=== PATIENT | female | born 1950 | race Caucasian/White ===

== ENCOUNTER 2017-11-25 05:24 | Day surgery (SDC) | payer OTHER ==
[~2017-11-25] VITALS: Ht 157.5 cm; Wt 59.0 kg
--- NOTE | ~2017-11-25 | O ---
[facility] [place] [address] OPERATIVE REPORT Name: SHIRA HUMPHREY Room #: DEP [facility]..#: [id number] Admission: 11/25/17 Attend Phys: Marques Andersen MD Discharge: 11/25/17 Date of : 50 Report #: [id number] THIS REPORT FOR: //name// CC: Marques Moncada MD DATE OF SERVICE: 11/25/2017 PREOPERATIVE DIAGNOSIS: Right breast mass, ultrasound-guided biopsy showing atypical ductal hyperplasia. POSTOPERATIVE DIAGNOSIS: Right breast mass, ultrasound-guided biopsy showing atypical ductal hyperplasia. PROCEDURES PERFORMED: Right breast biopsy with intraoperative ultrasound with needle placement. SURGEON: Marques Andersen M.D. ANESTHESIA: IV sedation. COMPLICATIONS: None. ESTIMATED BLOOD LOSS: 10 mL. PROCEDURE NOTE: With the patient under IV sedation, the breast was prepped and draped in a sterile fashion. A 0.25% Marcaine was used to anesthetize the skin. Using sterile ultrasound within a sleeve, the target was marked. A 21-gauge needle 2 inch in length was passed from the skin into the lesion. Ellipse was drawn around the needle and directly placed over the mass. This was excised. Dissection was then carried through subcutaneous tissue. The deeper tissue was then excised. The medial aspect is quite thick from her fibrocystic disease. Superior lateral, inferiorly and posteriorly was more of a fatty tissue consistency. Approximately a 3 x 4 cm segment was removed. Specimen sent to mammography. The clip is identified in the center part of the specimen consistent with successful removal of the area of interest. Specimen was then given to pathology with the outside report and orientation. Irrigation was performed, hemostasis obtained. The subcutaneous tissue was closed with 4-0 PDS. Skin was closed with 5-0 PDS. Dermabond was used. Fluffy, 4 x 4, OpSite used for dressing. The patient tolerated the procedure well. <ELECTRONICALLY SIGNED> By: Marques Andersen MD 11/27/17 1153 1602 1816 Marques Andersen MD /nt
--- NOTE | ~2017-11-25 | H ---
[facility] [place] [address] HISTORY AND PHYSICAL Name: SHIRA HUMPHREY Room #: DEP [facility] M.R.#: [id number] Admission: 11/25/17 Attend Phys: Marques Andersen MD Discharge: 11/25/17 Date of : 50 Report #: [id number] THIS REPORT FOR: //name// CC: Marques Moncada MD DATE OF SERVICE: 11/25/2017 PREOPERATIVE DIAGNOSIS: Right breast mass, biopsy shows atypical ductal hyperplasia, here for excisional biopsy. HISTORY OF PRESENT ILLNESS: The patient is a 67-year-old who on her most recent mammogram was found to have a small nodular lesion on her mammogram. The patient underwent ultrasound. Ultrasound showed a hypoechoic irregular area. I am not sure if this is the same as the mammographic identified area. It seems to be too medial. The patient did undergo diagnostic mammogram images. The patient underwent biopsy with ultrasound guidance. The biopsy came back with ADH. There are also fibrocystic changes. The patient has not noticed any problem on self exam. No pain, no discharge and no skin changes. The patient does do monthly exam. She does have a history of skin cancer in the right arm 8-9 years ago. No personal history of previous biopsy. She has had mammogram in the past that required a followup 6 months imaging because of the density of her breasts and fibrocystic nature. The patient has a maternal great aunt that has a history of breast cancer. There is ovarian cancer on the father's side. Paternal side does have pancreatic cancer and colon cancer. Father had prostate cancer and skin cancer. The patient is brought in for excision of the ADH area, which is about the 9 to 10 o'clock position in the right breast. PAST MEDICAL HISTORY: The patient has a history of hiatal hernia and Rogers's esophagus. No heart disease, no high blood pressure, no diabetes, no liver disease, no kidney disease, no bleeding disorder, no history of blood clot and no history of lung disease. PAST SURGICAL HISTORY: The patient had skin cancer removed from her right arm in 2009. MEDICATIONS: Hfwj-dlk-arjljwo Pepcid. FAMILY HISTORY: Cancer on the father's side. SOCIAL HISTORY: She is a primary caregiver for her . She does not smoke. Drinks one glass of wine daily. REVIEW OF SYSTEMS: Only remarkable for wearing glasses and having some reflux issues. No chest pain, shortness of breath or palpitation. [facility] [address] [place] [address] HISTORY AND PHYSICAL Name: SHIRA HUMPHREY Room #: DEP [facility]#: [id number] Admission: 11/25/17 Attend Phys: Marques Andersen MD Discharge: 11/25/17 Date of : 50 Report #: [id number] PHYSICAL EXAMINATION: GENERAL: The patient is well-nourished, elderly female in no acute distress. HEENT: Pupils react to light. Extraocular muscles are intact. Oropharynx is clear. NECK: Soft and supple, no masses. No supraclavicular or axillary adenopathy. BREASTS: Right breast, there is a small biopsy incision in the 9 o'clock position lateral. The biopsy site, the lesion is not distinctly palpable. It is visualized on ultrasound within the 9 o'clock B position. No skin changes. No other mass identified. The breast is moderately thickened. HEART: Regular rate and rhythm. No murmur or gallop. LUNGS: Clear. ABDOMEN: Soft, nondistended and nontender. EXTREMITIES: No cyanosis, clubbing or edema. IMPRESSION: The patient is a 67-year-old with an abnormal mammogram, which showed a nodular lesion. Ultrasound showed about a 1.5 cm hypoechoic area. I do not think this is what was seen on mammography. This was biopsied and did show area of atypical ductal hyperplasia, which was felt to be an incidental finding. The main lesion could be fibrocystic. The patient is recommended to undergo excisional biopsy of this area. I did speak with the radiologist that performed the procedure. There is a clip that was left behind. The clip is anterior of the mass. The patient understands biopsy, nature of the biopsy and does want to proceed. She is brought in for IV sedation and the right breast biopsy. Preop ultrasound or intraoperative ultrasound will be performed to identify the area of involvement. Specimen mammogram was discussed. The patient understands the procedure and wishes to proceed. <ELECTRONICALLY SIGNED> By: Marques Andersen MD 11/27/17 1153 [id number] 2224 Marques Andersen MD /nt
--- NOTE | ~2017-11-25 | PATH ---
[facility] [address] [place] [address] PATHOLOGY RPT PROCEDURE Name: ES HUMPHREY Room #: DEP [facility] M.R.#: [id number] Admission: 11/25/17 Date of : 50 Discharge: 11/25/17 Report #: [id number] Path Case #: [id number] [facility] Accession Number: [id number] . 01 Material submitted: . RIGHT BREAST TISSUE . 01 Clinician provided ICD-10: 0 . 01 Clinical history: . Right breast mass, ADH . 02 Diagnosis: Breast, right breast tissue, lumpectomy: - SCATTERED FOCI OF ATYPICAL DUCTAL HYPERPLASIA WITH CRIBRIFORM ARCHITECTURE; 1 MM FROM RESECTION MARGIN. - Proliferative changes including columnar cell hyperplasia, fibroadenoma, adenosis, usual ductal hyperplasia as well as apocrine metaplasia. - Extensive biopsy site changes/reparative changes present with calcium oxalate crystals. - Skin with no diagnostic abnormalities. (IUV:roshan; 11/29/2017) QMS/11/29/2017 . 02 Comment: CK5/6 and ER immunohistochemical stains are performed on block A5 and loss of mosaic pattern as well as overexpression is identified confirming the diagnosis of ADH as rendered. CK5/6 and ER are peformed on A19 as well and confirm the same. P63 immunohistochemical stain along with smooth muscle myosin heavy chain are performed on block A13 and it shows intact myoepithelial cells consistent with adenosis. . Box Sealing Machine Catcher slides (A5, A19, and A13) along with immunohistochemical stains are co-reviewed by Dr. Lizandro Humphries, who concurs with my diagnosis. (IUV:roshan; 11/29/2017) . 02 Electronically signed: . Arabella Asencio MD, Pathologist NPI- [id number] . 01 Gross description: . The specimen is received in formalin, labeled "Es Humphrey, right breast tissue, lesion facing up, clip anterior to lesion". Received is a 33 g unoriented segment of bright yellow lobulated tissue measuring 5.7 x 5.2 x 3.3 cm in greatest dimensions with an attached ellipse of pale mccabe, [place] [address] PATHOLOGY RPT PROCEDURE Name: MILAGROES Room #: DEP [facility] M.R.#: [id number] Admission: 11/25/17 Date of : 50 Discharge: 11/25/17 Report #: [id number] Path Case #: [id number] wrinkled skin measuring 3.6 x 0.5 cm. The surgical margin is inked. Sectioning reveals the hemorrhagic possible previous biopsy site measuring 1.2 x 0.3 x 0.3 cm, which is 0.7 cm from the closest margin. The remainder the specimen is comprised of bright yellow, lobulated to white-mccabe, fibrous cut surfaces, with the fibrous tissue encompassing approximately 7% of the specimen. Thorough dissection and palpation of the specimen reveals no readily identifiable biopsy clip. The specimen is serially sectioned and entirely submitted in cassettes A1 through A36, with some sections additionally bisected, trisected, or quadrisected. The cold ischemic time is 19 minutes. The total formalin fixation time is 11 hours and 40 minutes. (CAA; 11/25/2017) QAC/QAC . 02 Pathologist provided ICD-10: N60.91, D24.1, N60.81 . 02 CPT . 700003, P85302, Y13647 Specimen Comment: A courtesy copy of this report has been sent to Specimen Comment: [phone], . Specimen Comment: Report sent to / DR VILLAVICENCIO Performed at: [address], [place], [place] [id number] MD Timothy Saravia MD Phone: [phone] Performed at: [address] [id number] MD Arabella Asencio MD Phone: [phone]
--- NOTE | ~2017-11-25 | EKG ---
[place] [address] [facility] [place] [address] ELECTROCARDIOGRAM REPORT Name: MILAGROSHIRA INNA Room #: DEP [facility]#: [id number] Admission: 11/25/17 Attend Phys: Marques Andersen MD Discharge: 11/25/17 Date of : 50 Report #: [id number] THIS REPORT FOR: //name// [facility] Test Date: 2017-11-25 Test Time: 10:11:20 Pat Name: SHIRA HUMPHREY Department: Room: 150 2 Gender: F Field Case Manager: RENU : 1950 Requested By: Marques Andersen Order Number: [id number] MD: Jonathan Moreno Measurements Intervals [place] Rate: 62 P: 9 WI: 178 QRS: -58 QRSD: 89 T: 1 QT: 388 QTc: 394 Interpretive Statements Sinus rhythm LAD, consider left anterior fascicular block Borderline T abnormalities, inferior leads No previous ECG available for comparison Electronically Signed On 11-26-2017 10:06:26 CDT by Jonathan Moreno [email or web address] <ELECTRONICALLY SIGNED> By: Jonathan Moreno MD, [facility] 11/26/17 1006 1011 1011 Jonathan Moreno MD, [facility] /EPI
[~2017-11-25 05:24] MED LIST: CRANBERRY500 MG PO; FISH OIL 1,001000 M2 PO; OMEPRAZOLE20 MG PO; PROBIOTIC1 EAC1 PO; VITAMIN D2000 UNIT PO
[2017-11-25 09:37] LABS: HEMATOCRIT 39.3 % (37.0-47.0); HEMOGLOBIN 13.2 gm/dL (12.0-15.0)
[2017-11-25] MEDS ORDERED: NORCO 5-325 TA1 EACH PO (12:14)
[2017-11-25 12:30] VITALS: BP 148/74
== END 2017-11-25 13:40 | disposition home or self-care (01) ==
LOC: TBA 05:24 → OR 05:24
PROVIDERS: Surgery
DX: D24.1 Benign neoplasm of right breast (principal); N62 Hypertrophy of breast; N60.21 Fibroadenosis of right breast; N60.81 Other benign mammary dysplasias of right breast; K21.9 Gastro-esophageal reflux disease without esophagitis; K44.9 Diaphragmatic hernia without obstruction or gangrene; Z88.1 Allergy status to other antibiotic agents; Z85.828 Personal history of other malignant neoplasm of skin; Z85.3 Personal history of malignant neoplasm of breast; Z98.890 Other specified postprocedural states; Z79.899 Other long term (current) drug therapy
CPT/HCPCS: 50010; 50101; 50386; 50417; 54118; 56525; 56526; 62110; 62850; 70005

== ENCOUNTER → 2018-10-12 | Outpatient (CLI) | payer OTHER ==
[~2018-10-12] MED LIST changes: +NORCO 5-325 TA1 EACH PO
== END ==
LOC: RAD 01:13
DX: N60.91 Unspecified benign mammary dysplasia of right breast (principal); R92.2 Inconclusive mammogram

== ENCOUNTER → 2018-11-03 | Outpatient (CLI) | payer OTHER ==
[~2018-11-03] VITALS: Ht 157.5 cm; Wt 55.3 kg
[~2018-11-03] MED LIST changes: +CO Q-10100 MG PO; +PRILOSEC OTC20 MG PO; +SUPER CALCIUM1 EAC1 PO; +VITAMIN B-12500 MC5 SUBLING
--- NOTE | 2018-11-03 17:12 | P ---
[facility] [place] [address] PROCEDURE REPORT Name: SHIRA HUMPHREY Room #: REG [facility]#: [id number] Admission: 11/03/18 ������������������ Attend Phys: Aleksander Cox MD Discharge: ������������������ Date of : 50 Report #: [id number] THIS REPORT FOR: //name// CC: Aleksander Moncada MD DATE OF SERVICE: 11/03/2018 OUTPATIENT COLONOSCOPY REPORT BRIEF HISTORY: The patient is a 68-year-old woman for average risk screening colonoscopy. PREOPERATIVE DIAGNOSIS: Average risk screening colonoscopy. POSTOPERATIVE DIAGNOSES: 1. Diminutive rectal polyp. 2. Small internal hemorrhoids. MEDICATIONS: Deep sedation with propofol per anesthesia. SPECIMEN: Rectal polyp. ESTIMATED BLOOD LOSS: 3 mL. PROCEDURE: Colonoscopy to cecum and terminal ileum with biopsy. FINDINGS: Prior to propofol sedation, procedure of colonoscopy was discussed with the patient as well as potential risks and its complications. She indicates she understands and desires to proceed. DESCRIPTION OF PROCEDURE: With the patient in left lateral decubitus position, digital examination was completed, which revealed no abnormalities. Subsequently, the Olympus video colonoscope was introduced in the rectum, advanced under direct vision to the cecum. It was done with minimal difficulty. The cecum was identified by the ileocecal valve and the appendiceal orifice. I was able to visualize the distal segment of the terminal ileum, which was inspected and noted to be unremarkable. At that point, the scope was slowly withdrawn and careful circumferential views were obtained. Upon slow withdrawal of the scope, the prep was excellent. The mucosa was within normal limits, normal vascular pattern, normal light reflex. As we withdrew the scope, no abnormalities were noted throughout the entire colon until the rectum was reached. She had normal colonic mucosa throughout. Diverticular disease was not seen. The scope was withdrawn in the rectum and initially no abnormalities were seen. However, in the distal rectum, a diminutive polyp was seen and [facility] [address] [place] [address] PROCEDURE REPORT Name: SHIRA HUMPHREY Room #: REG [facility].#: [id number] Admission: 11/03/18 ������������������ Attend Phys: Aleksander Cox MD Discharge: ������������������ Date of : 50 Report #: [id number] removed with biopsy forceps. Upon retroflexion, small internal hemorrhoids were seen. Scope was withdrawn. The patient tolerated the procedure well. CONDITION OF THE PATIENT UPON DISCHARGE: Following procedure, the patient drowsy, aroused, conversant and will be discharged home when fully ambulatory. INSTRUCTIONS TO THE PATIENT AND FAMILY AT THE TIME OF DISCHARGE: We will follow up on the pathology. If this is an adenoma, she is to return in 5 years; if it is hyperplastic, then 10 years would be indicated. Last colonoscopy was 10 years ago. Withdrawal time from the cecum was 10 minutes 52 seconds. ��������������������������������������������� <ELECTRONICALLY SIGNED> ���������������������������������������� By: Aleksander Cox MD ��������������������������������������������� 11/03/18 1712 0805 0935 Aleksander Cox MD /nt
--- NOTE | 2018-11-06 16:06 | PATH ---
[facility] [address] [place] [address] PATHOLOGY RPT PROCEDURE Name: ES HUMPHREY Room #: REG [facility] Angelica.#: [id number] ������������������ Admission: 11/03/18 ������������������ Date of : 50 Discharge: Report #: [id number] Path Case #: [id number] [facility] Accession Number: [id number] . 01 Material submitted: . rectum - BX POLYP AT RECTUM . 01 Clinical history: . Pre-OP DX: Screening Post-OP DX: Rectal polyp, hemorrhoids . 02 Diagnosis: Polyp, at rectum, endoscopic biopsy: - Tubular adenoma. - Negative for high grade dysplasia. . (IUV:mml; 11/06/2018) QL 11/06/2018 1413 Local . 02 Electronically signed: . Arabella Asencio MD, Pathologist NPI- [id number] . 01 Gross description: . Received in formalin labeled "Es Humphrey, BX polyp at rectum," is a single segment of mccabe soft tissue measuring 0.3 cm in maximum dimension. The specimen is entirely submitted in cassette A1. (TSD; 11/03/2018) TOB/TOB 11/03/2018 2138 Local . 02 Pathologist provided ICD-10: D12.8 . 02 CPT . 763161 Specimen Comment: A courtesy copy of this report has been sent to Specimen Comment: [phone], . Specimen Comment: Report sent to / DR VILLAVICENCIO Performed at: [address], [place], [place] [id number] MD Timothy Saravia MD Phone: [phone] Performed at: [address] [id number] MD Arabella Asencio MD Phone: [phone]
== END | disposition home or self-care (01) ==
LOC: GI 06:14
DX: Z12.11 Encounter for screening for malignant neoplasm of colon (principal); D12.8 Benign neoplasm of rectum; K64.8 Other hemorrhoids; K21.9 Gastro-esophageal reflux disease without esophagitis; Z98.890 Other specified postprocedural states; Z79.899 Other long term (current) drug therapy; Z85.828 Personal history of other malignant neoplasm of skin; Z88.8 Allergy status to other drugs, medicaments and biological substances
CPT/HCPCS: 62110; 62900

== ENCOUNTER → 2019-09-25 | Outpatient (CLI) | payer OTHER | LOC: NUC 08:51 | PROVIDERS: ATTEND Neuromusculoskeletal Medicine & OMM | DX: M81.0 Age-related osteoporosis without current pathological fracture (principal); Z85.3 Personal history of malignant neoplasm of breast ==

== ENCOUNTER → 2020-06-13 | Outpatient (CLI) | payer OTHER | LOC: ULTRA 09:05 | PROVIDERS: ATTEND Neuromusculoskeletal Medicine & OMM | DX: R10.11 Right upper quadrant pain (principal) ==

== ENCOUNTER → 2020-07-02 | Outpatient (CLI) | payer OTHER | LOC: CAT 09:00 → LAB 11:27 | PROVIDERS: ATTEND Neuromusculoskeletal Medicine & OMM | DX: K44.9 Diaphragmatic hernia without obstruction or gangrene (principal); M47.816 Spondylosis without myelopathy or radiculopathy, lumbar region ==

== ENCOUNTER → 2020-10-17 | Outpatient (CLI) | payer OTHER | LOC: BC 13:34 | PROVIDERS: ATTEND Neuromusculoskeletal Medicine & OMM | DX: Z12.31 Encounter for screening mammogram for malignant neoplasm of breast (principal) ==

== ENCOUNTER → 2020-11-13 | Outpatient (CLI) | payer OTHER | LOC: NUC 08:03 | PROVIDERS: ATTEND Neuromusculoskeletal Medicine & OMM | DX: R10.11 Right upper quadrant pain (principal) ==